=== PATIENT | male | born 1980 ===

== ENCOUNTER 2017-08-20 19:34 | Emergency (ER) | payer OTHER ==
[2017-08-20 20:13] VITALS: BP 153/100
--- NOTE | 2017-08-20 20:54 | UC ---
Dizzy HPI HPI Summary: 36 yo male who is otherwise healthy who presents with 1 month history of intermittent dizziness and occasional NUNEZ. He has associated nasal congestion and feels that his ears are plugged. No cough or SOB. He has occasional feelings of gas that improves with belching. He also feels that his dizziness improves with belching. - History Of Current Complaint Chief Complaint: UCHeadache Stated Complaint: HEADACHE, DIZZINESS Pain Intensity: 3 - Allergies/Home Medications Allergies/Adverse Reactions: Allergies Allergy/AdvReac Type Severity Reaction Status Date / Time No Known Allergies Allergy Verified 08/20/17 20:13 Home Medications: Home Medications diPHENhydraMINE PO* [Benadryl PO 25 MG TAB*] 25 mg PO PRN 08/20/17 [History] PMH/Surg Hx/FS Hx/Imm Hx Previously Healthy: Yes - Surgical History Surgical History: None - Family History Known Family History: Positive: None - Social History Alcohol Use: None Substance Use Type: None Smoking Status (MU): Never Smoked Tobacco Review of Systems Constitutional: Negative Skin: Negative Eyes: Negative ENT: Nasal Discharge Respiratory: Negative Cardiovascular: Negative Gastrointestinal: Other - bloating Genitourinary: Negative Motor: Negative Neurovascular: Negative Musculoskeletal: Negative Neurological: Headache Psychological: Negative Is Patient Immunocompromised?: No All Other Systems Reviewed And Are Negative: Yes Physical Exam Triage Information Reviewed: Yes Appearance: Well-Appearing Vital Signs: Initial Vital Signs Temp 98.4 F 08/20/17 20:08 Pulse 102 08/20/17 20:08 Resp 16 08/20/17 20:08 BP 153/100 08/20/17 20:08 Pulse Ox 100 08/20/17 20:08 Vital Signs Reviewed: Yes ENT: Positive: Nasal congestion, TM dull - serous effusion bilaterally Neck exam: Normal Neck: Positive: Supple, Nontender Respiratory: Positive: Lungs clear, Normal breath sounds. Negative: Crackles, Rhonchi, Wheezing Cardiovascular Exam: Normal Cardiovascular: Positive: RRR, No Murmur Abdominal Exam: Normal Bowel Sounds: Positive: Present Musculoskeletal Exam: Normal Neurological Exam: Normal Psychological Exam: Normal Skin Exam: Normal Dizzy Course/Dx - Course Course Of Treatment: Otherwise healthy 36 yo male who presents with c/o NUNEZ and dizziness with bilateral serous effusion. Likely due to allergic rhinitis and associated vertigo - Differential Dx/Diagnosis Differential Diagnosis/HQI/PQRI: Benign Paroxysmal Positional Vertigo Provider Diagnoses: 1. Vertigo. 2. Allergic rhinitis Discharge - Sign-Out/Discharge Documenting (check all that apply): Discharge/Admit/Transfer - Discharge Plan Condition: Stable Disposition: HOME Prescriptions: Fluticasone NASAL SPRAY 50MCG* [Flonase NASAL SPRAY 50MCG*] 2 spray BOTH NARES DAILY #1 btl Patient Education Materials: Allergic Rhinitis (ED) Referrals: No Primary Care Phys,NOPCP [Primary Care Provider] - Additional Instructions: Instructions: 1. Use loratadine 10mg daily (this is an over the counter medication) 2. Use nasal spray as directed daily 3. For gas discomfort try TUMS or Rolaids - Billing Disposition and Condition Condition: STABLE Disposition: HOME
== END 2017-08-20 21:02 | disposition home or self-care (01) ==
LOC: UCEAST 19:34
DX: R42 Dizziness and giddiness (principal); J30.9 Allergic rhinitis, unspecified
CPT/HCPCS: 99202; G0463